=== PATIENT | female | born 1950 | race African-American/Black ===

== ENCOUNTER 2020-11-07 08:45 | Outpatient (CLI) | payer MEDICARE ==
[2020-11-07 17:06] LABS: SARS-CoV-2 PCR by NAA Not Detected (NotDetected)
== END 2020-11-07 08:46 | disposition home or self-care (01) ==
LOC: CSHLAB 08:45
PROVIDERS: ATTEND Internal Medicine
DX: Z20.822 Contact with and (suspected) exposure to COVID-19 (principal)
CPT/HCPCS: 87635; U0003; U0005